=== PATIENT | male | born 1935 | race Caucasian/White ===

== ENCOUNTER → 2016-10-13 | Outpatient (CLI) | payer MEDICARE, BC ==
--- NOTE | 2016-10-18 15:48 | SS ---
ADMIT: 10/13/2016 RM/LOC: MARILU SUTTER [facility] MR#: [id number] [address] [id number] JAIDEN REEVES [address] [place] [id number] Sleep Study SEX: M AGE: 81 : 1935 STUDY DATE: 10/13/2016 CLINICAL HISTORY: A 81-year-old male, body mass of 28.4, 67 inches tall, 180 pounds, with known history of obstructive sleep apnea, in the sleep lab for CPAP titration. TECHNICAL DESCRIPTION: CPAP titration performed on night of 10/13/2016, attended by a trained cytology technologist. TITRATION FINDINGS: TITRATION DESCRIPTION: The patient was titrated from 10 cm CPAP to 16 cm of CPAP. A ResMed AirFit F20 large full-face mask was used. SLEEP: Total time bed is 488 minutes, total sleep time 287 minutes. Sleep efficiency is 58.8%. 56.1% hours spent in stage II sleep. No REM sleep was seen. BREATHING: The patient had few obstructive apneas and hypopneas at lower CPAP pressures between 10 cm and 14 cm. On 16 cm, the patient was seen in non-REM sleep in supine position with excellent resolution of obstructive events. There was significant wake time seen in the 2nd half of the night. At the end of the study, the patient was again seen in non-REM sleep in supine position with complete resolution of obstructive events at 16 cm. REM supine sleep was not seen during the study. OXYGEN SATURATION: Mean sleeping oxygen 94%. CARDIAC: Average heart rate 46 beats per minute. MOVEMENTS/POSITION: During the study, the patient slept in the supine position with significant leg movements with a periodic leg movement index of 96. IMPRESSION AND PLAN: I recommend using CPAP at 16 cm with mask as mentioned above. Recommend losing weight, avoiding sedatives or alcohol. Refrain from driving if excessively sleepy, recommend avoiding sleeping in supine position. Clinical correlation needed. CPAP compliance followup is recommended. Of note, REM supine sleep was not seen during the study. Clifford Polo MD/ syed JOB #: [id number] CC: Clifford Polo MD, Attending Physician Jaiden Rincon MD, Family Physician
== END | disposition home or self-care (01) ==
LOC: RESC 09-18 21:00
DX: G47.33 Obstructive sleep apnea (adult) (pediatric) (principal)